=== PATIENT | male | born 1990 | race Caucasian/White ===

== ENCOUNTER 2019-03-30 23:42 | Emergency (ER) | payer SELFPAY ==
--- NOTE | 2019-03-31 01:11 | ER ---
Nurse's Notes [facility] Name: Pro Garcai Age: 28 yrs Sex: Male : 1990 Arrival Date: 03/30/2019 Time: 23:44 Bed 15 Private MD: Diagnosis: Schizophrenia Presentation: 03/30 23:52 Presenting complaint: Patient states: I feel like someone is following me and I am ed1 scared all the time. I called a mental health facility and they told me to come here to get an evaluation. Transition of care: patient was not received from another setting of care. Onset of symptoms was March 30, 2019. Risk Assessment: Do you want to hurt yourself or someone else? Patient reports no desire to harm self or others. Initial Sepsis Screen: Does the patient meet any 2 criteria? No. Patient's initial sepsis screen is negative. Does the patient have a suspected source of infection? No. Patient's initial sepsis screen is negative. Care prior to arrival: None. 23:52 Method Of Arrival: Ambulatory ed1 23:52 Acuity: SARWAT 2 ed1 Triage Assessment: 23:54 General: Appears in no apparent distress. Behavior is calm, cooperative. Pain: Denies ed1 pain. Historical: - Allergies: 23:54 No Known Allergies; ed1 - Home Meds: 23:54 None [Active]; ed1 - PMHx: 23:54 Anxiety; Schizophrenia; ed1 - PSHx: 23:54 Hernia repair; ed1 - Immunization history:: Adult Immunizations up to date. - Social history:: Smoking status: Patient uses tobacco products, smokes one pack cigarettes per day. Patient uses street drugs, marijuana, Methamphetamine (Meth). - Ebola Screening: : Patient negative for fever greater than or equal to 101.5 degrees Fahrenheit, and additional compatible Ebola Virus Disease symptoms Patient denies exposure to infectious person Patient denies travel to an Ebola-affected area in the 21 days before illness onset No symptoms or risks identified at this time. Screenin/10 00:08 Abuse screen: Denies threats or abuse. Denies injuries from another. Nutritional ak1 screening: No deficits noted. Tuberculosis screening: No symptoms or risk factors identified. Fall Risk None identified. Assessment: 00:08 General: pt living in a house in [place] with the person at the bedside. pt stated he ak1 feels safe at his home. pt denies selfharm, suicidal ideations or homicidal ideations. pt stated he "feels like someone is following me" there is "a friendly presents that follows him like a guardian freddy. pt admits to "smoking weed" today. pt denies any other drug use today. . 00:18 Reassessment: pt denies hearing voices or "seeing anyone". ak1 00:56 Reassessment: provider at bedside now. ak1 Vital Signs: 05 23:54 BP 151 / 94; Pulse 81; Resp 18; Temp 99.2(TE); Pulse Ox 100% on R/A; Weight 79.83 kg; ed1 Height 6 ft. 3 in. (190.50 cm); Pain 0/10; 23:54 Body Mass Index 22.00 (79.83 kg, 190.50 cm) ed1 ED Course: 23:44 Patient arrived in ED. es 23:54 Triage completed. ed1 23:54 Arm band placed on right wrist. ed1 05 00:08 Celeste Ballesteros, RN is Primary Nurse. ak1 00:08 Patient has correct armband on for positive identification. Bed in low position. Call ak1 light in reach. Side rails up X 1. Adult w/ patient. 00:11 Clemente David PA is PHCP. jr8 00:11 Khoa Troy MD is Attending Physician. jr8 01:36 No provider procedures requiring assistance completed. Patient did not have IV access ak1 during this emergency room visit. Administered Medications: 01:36 Drug: SEROquel 25 mg Route: PO; ak1 01:36 Follow up: Response: Medication administered at discharge. ak1 Outcome: 01:10 Discharge ordered by . jr8 01:37 Discharged to home ambulatory, with family. ak1 01:37 Condition: good 01:37 Discharge instructions given to patient, family, Instructed on discharge instructions, follow up and referral plans. no drinking with medication, no driving heavy equipment, medication usage, Demonstrated understanding of instructions, follow-up care, medications, Prescriptions given X 1. 01:37 Patient left the ED. ak1 Signatures: Clair Gallagher Erika, RN RN ed1 Roszak, Clemente, PA PA jr8 Krenek, Celeste, RN RN ak1
--- NOTE | 2019-03-31 01:11 | EDPHYS ---
Physician Documentation [facility] Name: Pro Garcia Age: 28 yrs Sex: Male : 1990 Arrival Date: 03/30/2019 Time: 23:44 Bed 15 Private MD: CASH Physician Khoa Troy HPI: 03/31 01:17 This 28 yrs old Male presents to ER via Ambulatory with complaints of EVAL jr8 FOR MENTAL HEALTH. 01:17 The patient presents to the emergency department with paranoia. Onset: The jr8 symptoms/episode began/occurred gradually. Past psychiatric history: Prior diagnosis: schizophrenia. Associated signs and symptoms: The patient has no apparent associated signs or symptoms. Severity of symptoms: At their worst the symptoms were mild in the emergency department the symptoms are unchanged. The patient has experienced similar episodes in the past, chronically. The patient has not recently seen a physician. Patient with history of schizophrenia. Stated that he has been seeing a female that follows him for a long time. Stated that she is nice and sometime mean. Denies SI/HI. Stated that she scares him at times and wants it to stop. Wanted to come for evaluation . Historical: - Allergies: 03/30 23:54 No Known Allergies; ed1 - Home Meds: 23:54 None [Active]; ed1 - PMHx: 23:54 Anxiety; Schizophrenia; ed1 - PSHx: 23:54 Hernia repair; ed1 - Immunization history:: Adult Immunizations up to date. - Social history:: Smoking status: Patient uses tobacco products, smokes one pack cigarettes per day. Patient uses street drugs, marijuana, Methamphetamine (Meth). - Ebola Screening: : Patient negative for fever greater than or equal to 101.5 degrees Fahrenheit, and additional compatible Ebola Virus Disease symptoms Patient denies exposure to infectious person Patient denies travel to an Ebola-affected area in the 21 days before illness onset No symptoms or risks identified at this time. ROS: 03/31 01:17 Eyes: Negative for injury, pain, redness, and discharge, ENT: Negative for injury, jr8 pain, and discharge, Neck: Negative for injury, pain, and swelling, Cardiovascular: Negative for chest pain, palpitations, and edema, Respiratory: Negative for shortness of breath, cough, wheezing, and pleuritic chest pain, Abdomen/GI: Negative for abdominal pain, nausea, vomiting, diarrhea, and constipation, Back: Negative for injury and pain, MS/Extremity: Negative for injury and deformity, Skin: Negative for injury, rash, and discoloration, Neuro: Negative for headache, weakness, numbness, tingling, and seizure. Psych: Positive for auditory hallucinations, visual hallucinations, Negative for suicide gesture, suicidal ideation. Exam: 01:17 Eyes: Pupils equal round and reactive to light, extra-ocular motions intact. Lids and jr8 lashes normal. Conjunctiva and sclera are non-icteric and not injected. Cornea within normal limits. Periorbital areas with no swelling, redness, or edema. ENT: Nares patent. No nasal discharge, no septal abnormalities noted. Tympanic membranes are normal and external auditory canals are clear. Oropharynx with no redness, swelling, or masses, exudates, or evidence of obstruction, uvula midline. Mucous membranes moist. Neck: Trachea midline, no thyromegaly or masses palpated, and no cervical lymphadenopathy. Supple, full range of motion without nuchal rigidity, or vertebral point tenderness. No Meningismus. Cardiovascular: Regular rate and rhythm with a normal S1 and S2. No gallops, murmurs, or rubs. Normal PMI, no JVD. No pulse deficits. Respiratory: Lungs have equal breath sounds bilaterally, clear to auscultation and percussion. No rales, rhonchi or wheezes noted. No increased work of breathing, no retractions or nasal flaring. Abdomen/GI: Soft, non-tender, with normal bowel sounds. No distension or tympany. No guarding or rebound. No evidence of tenderness throughout. Back: No spinal tenderness. No costovertebral tenderness. Full range of motion. Skin: Warm, dry with normal turgor. Normal color with no rashes, no lesions, and no evidence of cellulitis. MS/ Extremity: Pulses equal, no cyanosis. Neurovascular intact. Full, normal range of motion. Neuro: Awake and alert, GCS 15, oriented to person, place, time, and situation. Cranial nerves II-XII grossly intact. Motor strength 5/5 in all extremities. Sensory grossly intact. Cerebellar exam normal. Normal gait. 01:17 Psych: Behavior/mood is cooperative, Affect is calm, Oriented to person, place, time, Patient has no thoughts/intents to harm self or others. Judgement / Insight is normal. Memory is normal. Delusions/hallucinations are present and described as Female person and voice present. Tells him that she can hurt him. . Vital Signs: 03/30 23:54 BP 151 / 94; Pulse 81; Resp 18; Temp 99.2(TE); Pulse Ox 100% on R/A; Weight 79.83 kg; ed1 Height 6 ft. 3 in. (190.50 cm); Pain 0/10; 23:54 Body Mass Index 22.00 (79.83 kg, 190.50 cm) ed1 MDM: 03/31 00:11 Patient medically screened. [facility] 01:09 Data reviewed: vital signs, nurses notes, and as a result, I will discharge patient. jr8 Data interpreted: Pulse oximetry: on room air is 100 %. Interpretation: normal. Counseling: I had a detailed discussion with the patient and/or guardian regarding: the historical points, exam findings, and any diagnostic results supporting the discharge/admit diagnosis, the need for outpatient follow up, a psychiatrist, to return to the emergency department if symptoms worsen or persist or if there are any questions or concerns that arise at home. Administered Medications: 01:36 Drug: SEROquel 25 mg Route: PO; ak1 01:36 Follow up: Response: Medication administered at discharge. ak1 Disposition: 15:00 Co-signature as Attending Physician, Khoa Troy MD I agree with the assessment and [facility] plan of care. Disposition: 03/31/19 01:10 Discharged to Home. Impression: Schizophrenia. - Condition is Stable. - Discharge Instructions: Schizophrenia. - Prescriptions for Seroquel XR 300 mg Oral tablet extended release 24 hr - take 1 tablet by ORAL route once daily at bedtime; 20 tablet. - Medication Reconciliation Form, Thank You Letter, Antibiotic Education, Prescription Opioid Use form. - Follow up: Private Physician; When: Tomorrow; Reason: Recheck today's complaints, Continuance of care, Re-evaluation by your physician. - Problem is new. - Symptoms have improved. Signatures: Khoa Troy MD MD cha Riggs, Erika RN RN ed1 Clemente David PA PA jr8 Celeste Ballesteros RN RN ak1 Corrections: (The following items were deleted from the chart) 01:37 01:10 03/31/2019 01:10 Discharged to Home. Impression: Schizophrenia. Condition is ak1 Stable. Forms are Medication Reconciliation Form, Thank You Letter, Antibiotic Education, Prescription Opioid Use. Follow up: Private Physician; When: Tomorrow; Reason: Recheck today's complaints, Continuance of care, Re-evaluation by your physician. Problem is new. Symptoms have improved. jr8
[2019-03-31] MEDS ORDERED: QUETIAPINE 25 MG TAB ONE (01:41)
== END 2019-03-31 01:37 | disposition home or self-care (01) ==
LOC: ER 23:42
DX: F20.9 Schizophrenia, unspecified (principal); F17.210 Nicotine dependence, cigarettes, uncomplicated
CPT/HCPCS: 99283

== ENCOUNTER 2019-04-18 20:45 | Emergency (ER) | payer SELFPAY ==
--- NOTE | 2019-04-18 20:56 | ER ---
Nurse's Notes [facility] Name: Pro Garcia Age: 28 yrs Sex: Male : 1990 Arrival Date: 04/18/2019 Time: 20:48 Bed 12 Private MD: Diagnosis: Encounter for issue of repeat prescription Presentation: 04/18 20:52 Presenting complaint: Patient states: I am here because I am 3 days away from being out ed1 of my medication. I don't want the voices to come back. My anxiety is getting a little bit better. Transition of care: patient was not received from another setting of care. Onset of symptoms was April 18, 2019. Risk Assessment: Do you want to hurt yourself or someone else? Patient reports no desire to harm self or others. Initial Sepsis Screen: Does the patient meet any 2 criteria? No. Patient's initial sepsis screen is negative. Does the patient have a suspected source of infection? No. Patient's initial sepsis screen is negative. Care prior to arrival: None. 20:52 Method Of Arrival: Ambulatory ed1 20:52 Acuity: SARWAT 5 ed1 Triage Assessment: 20:55 General: Appears in no apparent distress. Behavior is calm, cooperative. Pain: Denies ed1 pain. Historical: - Allergies: 20:55 No Known Allergies; ed1 - Home Meds: 20:55 Seroquel 300 mg Oral tab 1 tab once daily [Active]; ed1 - PMHx: 20:55 Anxiety; Schizophrenia; ed1 - PSHx: 20:55 Hernia repair; ed1 - Immunization history:: Adult Immunizations up to date. - Social history:: Smoking status: Patient/guardian denies using tobacco. - Ebola Screening: : Patient negative for fever greater than or equal to 101.5 degrees Fahrenheit, and additional compatible Ebola Virus Disease symptoms Patient denies exposure to infectious person Patient denies travel to an Ebola-affected area in the 21 days before illness onset No symptoms or risks identified at this time. Screenin:04 Abuse screen: Denies threats or abuse. Denies injuries from another. Nutritional ed1 screening: No deficits noted. Tuberculosis screening: No symptoms or risk factors identified. Fall Risk None identified. Assessment: 21:04 General: Appears in no apparent distress. Behavior is calm, cooperative. Pain: Denies ed1 pain. Neuro: Level of Consciousness is awake, alert, obeys commands, Oriented to person, place, time, situation. Cardiovascular: Denies chest pain. Respiratory: Airway is patent Respiratory effort is even, unlabored, Respiratory pattern is regular, symmetrical, Breath sounds are clear bilaterally. GI: No signs and/or symptoms were reported involving the gastrointestinal system. : No signs and/or symptoms were reported regarding the genitourinary system. EENT: No signs and/or symptoms were reported regarding the EENT system. Derm: Skin is intact, is healthy with good turgor, Skin is dry, Skin is normal, Skin temperature is warm. Musculoskeletal: Circulation, motion, and sensation intact. Range of motion: intact in all extremities. Vital Signs: 20:55 BP 150 / 95; Pulse 96; Resp 18; Temp 98.2(O); Pulse Ox 99% on R/A; Weight 79.83 kg; ed1 Height 6 ft. 3 in. (190.50 cm); Pain 0/10; 20:55 Body Mass Index 22.00 (79.83 kg, 190.50 cm) ed1 ED Course: 20:48 Patient arrived in ED. es 20:54 Triage completed. ed1 20:55 Tana Alvarado FNP-C is [facility]. kb 20:55 Riccardo Adams MD is Attending Physician. kb 20:55 Arm band placed on. ed1 21:04 Patient has correct armband on for positive identification. ed1 21:04 No provider procedures requiring assistance completed. Patient did not have IV access ed1 during this emergency room visit. Administered Medications: No medications were administered Outcome: 20:56 Discharge ordered by . kb 21:04 Discharged to home ambulatory. ed1 21:04 Condition: good 21:04 Discharge instructions given to patient, Instructed on discharge instructions, follow up and referral plans. medication usage, Demonstrated understanding of instructions, follow-up care, medications, Prescriptions given X 1. 21:05 Patient left the ED. ed1 Signatures: Tana Alvarado FNP-C FNP-Clair Barney Erika, RN RN ed1
--- NOTE | 2019-04-18 20:57 | EDPHYS ---
Physician Documentation [facility] Name: Pro Garcia Age: 28 yrs Sex: Male : 1990 Arrival Date: 04/18/2019 Time: 20:48 Bed 12 Private MD: ED Physician Riccardo Adams HPI: 04/18 21:00 This 28 yrs old Male presents to ER via Ambulatory with complaints of kb Medication Refill. 21:00 The patient presents to the emergency department requesting refill(s) for: Seroquel. kb The patient chronically suffers from anxiety and schizophrenia. The patient has experienced similar episodes in the past. The patient has not recently seen a physician. Pt reports he is almost out of seroquel and is worried the voices will come back if he runs out. States he went to [facility], but they couldn't see him because he didn't have ID. States he is working on getting that and will follow up, just needs to have his meds in the meantime. Denies suicidal or homicidal ideations. Historical: - Allergies: 20:55 No Known Allergies; ed1 - Home Meds: 20:55 Seroquel 300 mg Oral tab 1 tab once daily [Active]; ed1 - PMHx: 20:55 Anxiety; Schizophrenia; ed1 - PSHx: 20:55 Hernia repair; ed1 - Immunization history:: Adult Immunizations up to date. - Social history:: Smoking status: Patient/guardian denies using tobacco. - Ebola Screening: : Patient negative for fever greater than or equal to 101.5 degrees Fahrenheit, and additional compatible Ebola Virus Disease symptoms Patient denies exposure to infectious person Patient denies travel to an Ebola-affected area in the 21 days before illness onset No symptoms or risks identified at this time. ROS: 20:59 Constitutional: Negative for fever, chills, and weight loss, Cardiovascular: Negative kb for chest pain, palpitations, and edema, Respiratory: Negative for shortness of breath, cough, wheezing, and pleuritic chest pain, Abdomen/GI: Negative for abdominal pain, nausea, vomiting, diarrhea, and constipation, : Negative for injury, bleeding, discharge, and swelling, MS/Extremity: Negative for injury and deformity, Skin: Negative for injury, rash, and discoloration, Neuro: Negative for headache, weakness, numbness, tingling, and seizure. Exam: 20:59 Constitutional: This is a well developed, well nourished patient who is awake, alert, kb and in no acute distress. Head/Face: Normocephalic, atraumatic. ENT: Nares patent. No nasal discharge, no septal abnormalities noted. Tympanic membranes are normal and external auditory canals are clear. Oropharynx with no redness, swelling, or masses, exudates, or evidence of obstruction, uvula midline. Mucous membranes moist. Neck: Trachea midline, no thyromegaly or masses palpated, and no cervical lymphadenopathy. Supple, full range of motion without nuchal rigidity, or vertebral point tenderness. No Meningismus. Chest/axilla: Normal chest wall appearance and motion. Nontender with no deformity. No lesions are appreciated. Cardiovascular: Regular rate and rhythm with a normal S1 and S2. No gallops, murmurs, or rubs. Normal PMI, no JVD. No pulse deficits. Respiratory: Lungs have equal breath sounds bilaterally, clear to auscultation and percussion. No rales, rhonchi or wheezes noted. No increased work of breathing, no retractions or nasal flaring. Abdomen/GI: Soft, non-tender, with normal bowel sounds. No distension or tympany. No guarding or rebound. No evidence of tenderness throughout. Skin: Warm, dry with normal turgor. Normal color with no rashes, no lesions, and no evidence of cellulitis. MS/ Extremity: Pulses equal, no cyanosis. Neurovascular intact. Full, normal range of motion. Neuro: Awake and alert, GCS 15, oriented to person, place, time, and situation. Cranial nerves II-XII grossly intact. Motor strength 5/5 in all extremities. Sensory grossly intact. Cerebellar exam normal. Normal gait. Vital Signs: 20:55 BP 150 / 95; Pulse 96; Resp 18; Temp 98.2(O); Pulse Ox 99% on R/A; Weight 79.83 kg; ed1 Height 6 ft. 3 in. (190.50 cm); Pain 0/10; 20:55 Body Mass Index 22.00 (79.83 kg, 190.50 cm) ed1 MDM: 20:55 Patient medically screened. kb 20:59 Data reviewed: vital signs, nurses notes. Data interpreted: Pulse oximetry: on room air kb is 99 %. Interpretation: normal. Counseling: I had a detailed discussion with the patient and/or guardian regarding: the historical points, exam findings, and any diagnostic results supporting the discharge/admit diagnosis, the need for outpatient follow up, a family practitioner, to return to the emergency department if symptoms worsen or persist or if there are any questions or concerns that arise at home. Administered Medications: No medications were administered Disposition: 23:57 Co-signature as Attending Physician, Riccardo Adams MD. Disposition: 04/18/19 20:56 Discharged to Home. Impression: Encounter for issue of repeat prescription. - Condition is Stable. - Discharge Instructions: Medicine Refill at the Emergency Department. - Prescriptions for Seroquel XR 300 mg Oral tablet extended release 24 hr - take 1 tablet by ORAL route once daily at bedtime; 20 tablet. - Medication Reconciliation Form, Thank You Letter, Antibiotic Education, Prescription Opioid Use form. - Follow up: Emergency Department; When: As needed; Reason: Worsening of condition. Follow up: Private Physician; When: 2 - 3 days; Reason: Recheck today's complaints, Continuance of care, Re-evaluation by your physician. Signatures: Tana Alvarado FNP-C FNP-Patrizia Al RN RN ed1 Riccardo Adams MD MD Corrections: (The following items were deleted from the chart) 21:05 20:56 04/18/2019 20:56 Discharged to Home. Impression: Encounter for issue of repeat ed1 prescription. Condition is Stable. Forms are Medication Reconciliation Form, Thank You Letter, Antibiotic Education, Prescription Opioid Use. Follow up: Emergency Department; When: As needed; Reason: Worsening of condition. Follow up: Private Physician; When: 2 - 3 days; Reason: Recheck today's complaints, Continuance of care, Re-evaluation by your physician. kb
== END 2019-04-18 21:05 | disposition home or self-care (01) ==
LOC: ER 20:45
DX: Z76.0 Encounter for issue of repeat prescription (principal); F41.9 Anxiety disorder, unspecified; F20.9 Schizophrenia, unspecified
CPT/HCPCS: 99282

== ENCOUNTER 2019-07-28 14:57 | Emergency (ER) | payer SELFPAY ==
[2019-07-28 15:53] LABS: Urine Blood NEGATIVE (NEG); Urine Glucose NEGATIVE (NEG); Urine Protein NEGATIVE (NEG); Urine Specific Gravity 1.025 (1.005-1.030)
[2019-07-28 16:07] LABS: Barbiturates NEGATIVE (NEGATIVE); Benzodiazepines NEGATIVE (NEGATIVE); Cocaine NEGATIVE (NEGATIVE); METHAMPHETAM POSITIVE (NEGATIVE); Methadone NEGATIVE (NEGATIVE); Opiates NEGATIVE (NEGATIVE); Phencyclidine NEGATIVE (NEGATIVE); THC Cannibis POSITIVE (NEGATIVE)
[2019-07-28 16:07] LABS: Protime INR 0.95
[2019-07-28 16:17] LABS: Absolute Lymphocytes (CBC) 1.6 K/uL (0.7-4.9); Hematocrit 45.3 % (39.6-49.0); Lymphocytes % 20.2 % (15.3-44.8); MPV 9.9 fL (7.6-11.3); RBC Red Blood Cell Count 5.01 M/uL (4.33-5.43)
[2019-07-28 16:28] LABS: ALT/SGPT 19 U/L (12-78); AST/SGOT 10 U/L (15-37); Albumin 3.8 g/dL (3.4-5.0); Alkaline Phosphatase 59 U/L (45-117); BUN Blood Urea Nitrogen 14 mg/dL (7-18); Bicarbonate 26 mmol/L (21-32); Bilirubin Direct 0.1 mg/dL (0-0.2); Bilirubin Total 0.4 mg/dL (0.2-1.0); Glucose Level 82 mg/dL (74-106); Potassium 4.5 mmol/L (3.5-5.1); Protein, Total 6.6 g/dL (6.4-8.2); Sodium Level 143 mmol/L (136-145)
[2019-07-28] MEDS ORDERED: NA CHLORIDE 0.9% 1,000 ML ONE (17:46)
[2019-07-28] MEDS ORDERED: QUETIAPINE 25 MG TAB PO ONE (19:00)
--- NOTE | 2019-07-28 19:48 | ER ---
Nurse's Notes [facility] Name: Pro Garcia Age: 28 yrs Sex: Male : 1990 Arrival Date: 07/28/2019 Time: 14:58 Bed 15 Private MD: Diagnosis: Suicidal ideations Presentation: 07/28 15:01 Presenting complaint: Patient states: "I came in here a couple months ago because I was aj1 having mental health problems and I thought a women was following me around, its gotten worse and now I hear everyone talking to me in my head and it makes me want to kill myself so the medication they gave me isn't working" Patient reports that he has a plan to kill himself by buying a gun and shooting himself. Transition of care: patient was not received from another setting of care. Onset of symptoms was July 28, 2019. Risk Assessment: Do you want to hurt yourself or someone else? Patient reports desire/thoughts of hurting themselves or someone else. Provider notified. Initial Sepsis Screen: Does the patient meet any 2 criteria? No. Patient's initial sepsis screen is negative. Does the patient have a suspected source of infection? No. Patient's initial sepsis screen is negative. Care prior to arrival: None. 15:01 Method Of Arrival: Ambulatory [facility] 15:01 Acuity: SARWAT 2 aj1 Triage Assessment: 15:03 General: Appears uncomfortable, Behavior is cooperative, anxious. Pain: Denies pain. aj1 Neuro: Level of Consciousness is awake, alert, obeys commands. Cardiovascular: Patient's skin is warm and dry. Respiratory: Airway is patent Respiratory effort is even, unlabored, Respiratory pattern is regular, symmetrical. Historical: - Allergies: 15:03 No Known Allergies; aj1 - Home Meds: 15:03 None [Active]; aj1 - PMHx: 15:03 Anxiety; Schizophrenia; aj1 - Immunization history:: Flu vaccine is not up to date. - Social history:: Smoking status: Patient uses tobacco products, smokes one pack cigarettes per day. - Ebola Screening: : Patient denies travel to an Ebola-affected area in the 21 days before illness onset. Screenin:11 Abuse screen: Denies threats or abuse. Denies injuries from another. Nutritional ph screening: No deficits noted. Tuberculosis screening: No symptoms or risk factors identified. Fall Risk None identified. Assessment: 15:30 General: Appears in no apparent distress. comfortable, slender, Behavior is ph cooperative, appropriate for age, anxious. Pain: Denies pain. Neuro: Level of Consciousness is awake, alert, obeys commands, Oriented to person, place, time, situation. Cardiovascular: Capillary refill < 3 seconds in bilateral fingers Patient's skin is warm and dry. Respiratory: Airway is patent Respiratory effort is even, unlabored. GI: No signs and/or symptoms were reported involving the gastrointestinal system. Derm: Skin is intact, Skin is pink, warm \\T\\ dry. Musculoskeletal: Circulation, motion, and sensation intact. Range of motion: intact in all extremities. 16:54 Reassessment: Patient appears in no apparent distress at this time. No changes from tw2 previously documented assessment. Patient and/or family updated on plan of care and expected duration. Pain level reassessed. Patient is alert, oriented x 3, equal unlabored respirations, skin warm/dry/pink. pt appears to be sleeping at this time. 18:10 Reassessment: Patient appears in no apparent distress at this time. Patient and/or ph family updated on plan of care and expected duration. Pain level reassessed. Patient is alert, oriented x 3, equal unlabored respirations, skin warm/dry/pink. [facility] at bedside to assess pt. 19:00 General: Appears in no apparent distress. comfortable, Behavior is calm, cooperative, jd3 appropriate for age. Pain: Denies pain. Neuro: Level of Consciousness is awake, alert, obeys commands, Oriented to person, place, time, situation, Reports auditory hallucinations. Cardiovascular: Capillary refill < 3 seconds Patient's skin is warm and dry. Respiratory: Airway is patent Respiratory effort is even, unlabored, Respiratory pattern is regular, symmetrical. GI: No signs and/or symptoms were reported involving the gastrointestinal system. : No signs and/or symptoms were reported regarding the genitourinary system. EENT: No signs and/or symptoms were reported regarding the EENT system. Derm: Skin is intact, Skin is dry, Skin is normal, Skin temperature is warm. Musculoskeletal: Circulation, motion, and sensation intact. Range of motion: intact in all extremities. 20:00 Reassessment: Patient appears in no apparent distress at this time. Patient and/or jd3 family updated on plan of care and expected duration. Pain level reassessed. Patient is alert, oriented x 3, equal unlabored respirations, skin warm/dry/pink. pt resting in bed with eyes closed, even and unlabored respirations. no distress noted at this time. sitter at bedside. attempted to call report to [facility], was told to call back later. Patient denies pain at this time. 20:27 Reassessment: report given to Alisia Ramos RN at [facility]. [facility] 21:00 Reassessment: Patient appears in no apparent distress at this time. Patient and/or jd3 family updated on plan of care and expected duration. Pain level reassessed. Patient is alert, oriented x 3, equal unlabored respirations, skin warm/dry/pink. awaiting EMS for transportation. Patient denies pain at this time. 21:25 Reassessment: Patient appears in no apparent distress at this time. Patient and/or jd3 family updated on plan of care and expected duration. Pain level reassessed. Patient is alert, oriented x 3, equal unlabored respirations, skin warm/dry/pink. report given to EMS. Patient denies pain at this time. Psych: 15:05 Subjective: Patient's mood is sad, Delusions are States he feels that Jamila Lin is aj1 telling him to kill himself Hallucinations are auditory, Having thoughts of suicide. Objective: Patient is cooperative, Speech is normal, Affect is blunted. Suicide Risk Assessment: Sad Person Scale: Sex of patient: Male: Score 1 point. Age of patient: Score 1 point if patient 15-34. Depression: Score 1 point if signs of depression are present. Previous Attempt: Score 0 point if patient has not previously attempted suicide. Substance Abuse: Score 1 point if patient abuses alcohol or drugs. Rational Thinking: Score 1 point if patient is lacking rational thinking. Social Support: Score 1 point if social support is lacking and/or unavailable. Organized Plan: Score 1 point if patient had a plan in place. Relationship: Score 1 point if patient is , , , or for a single male Chronic Sickness: Score 0 point if patient does not have a chronic illness, debilitating, or severe disorder. TOTAL POINTS: If total points are 7-10, the proposed clinical action is to hospitalize or commit. Implement suicide precautions. Patient uses marijuana Patient uses methamphetamines. Commitment: Patient will be a voluntary commitment. 15:15 Interventions: Removed personal items and placed in bag. Patient placed in hospital ph gown. Searched person for dangerous items. Urine collected and sent for urine drug test. Belonging list filled out. Safety Checks: Personal items have been removed. clothing, cigarettes, customer support consultant and 22 dollars in [place] Door is open. Vital Signs: 15:03 BP 137 / 79; Pulse 100; Resp 18; Temp 98.0; Pulse Ox 100% on R/A; Weight 79.83 kg (R); aj1 Height 6 ft. 2 in. (187.96 cm) (R); Pain 0/10; 19:14 BP 112 / 71; Pulse 85; Resp 18; Temp 98.4; Pulse Ox 98% on R/A; Pain 0/10; aa8 15:03 Body Mass Index 22.60 (79.83 kg, 187.96 cm) aj1 ED Course: 14:58 Patient arrived in ED. as 15:00 Safety checks: Items removed: yes. Door open/sign placed on door: yes. Family/friend mh5 present: no. Sitter present: Yes. 15:03 Triage completed. aj1 15:03 Arm band placed on Patient placed in an exam room. aj1 15:08 Placed in gown. Bed in low position. Side rails up X 1. sitter present at bedside. tw2 15:10 Helen Phillip, RN is Primary Nurse. 15:15 Safety checks: Items removed: yes. Door open/sign placed on door: yes. Family/friend mh5 present: no. Sitter present: Yes. 15:27 Khoa Ernst PA is PHCP. cp 15:27 Khoa Troy MD is Attending Physician. cp 15:30 Safety checks: Items removed: yes. Door open/sign placed on door: yes. Family/friend mh5 present: no. Sitter present: Yes. 15:42 Initial lab(s) drawn, by me, sent to lab. Inserted saline lock: 22 gauge in left mh5 antecubital area, using aseptic technique. Blood collected. 15:42 Acetaminophen Sent. 5 15:42 Basic Metabolic Panel Sent. 5 15:42 CBC with Diff Sent. 5 15:42 ETOH Level Sent. mh5 15:42 Salicylate Sent. mh5 15:43 Urine Drug Screen Sent. mh5 15:43 Ptt, Activated Sent. mh5 15:43 PT-INR Sent. mh5 15:43 Hepatic Function Sent. mh5 15:43 Urine Dipstick--Ancillary (enter results) Sent. mh5 15:45 Safety checks: Items removed: yes. Door open/sign placed on door: yes. Family/friend mh5 present: no. Sitter present: Yes. 16:00 Safety checks: Items removed: yes. Door open/sign placed on door: yes. Family/friend mh5 present: no. Sitter present: Yes. Warm blanket given. 16:07 EKG done, by bicycle repair technician. reviewed by Khoa JO. [facility] 16:15 Safety checks: Items removed: Door open/sign placed on door: yes. Family/friend mh5 present: no. Sitter present: Yes. 16:30 Safety checks: Items removed: yes. Door open/sign placed on door: yes. Family/friend mh5 present: no. Sitter present: Yes. 16:45 Safety checks: Items removed: yes. Door open/sign placed on door: yes. Family/friend mh5 present: no. Sitter present: Yes. Lights dimmed. 17:00 Safety checks: Items removed: yes. Door open/sign placed on door: yes. Family/friend mh5 present: no. Sitter present: Yes. 17:12 Diet: Patient given a regular meal tray. 5 17:15 Safety checks: Items removed: yes. Door open/sign placed on door: yes. Family/friend mh5 present: no. Sitter present: Yes. 17:29 faxed chart to [facility], [facility], [facility] and [facility]. 17:30 Safety checks: Items removed: yes. Door open/sign placed on door: yes. Family/friend mh5 present: no. Sitter present: Yes. 17:31 contacted [facility], talked to Gage, faxed the chart and exclusionary with bd consent for voluntary admission to psychiatric service. 17:45 Safety checks: Items removed: yes. Door open/sign placed on door: yes. Family/friend mh5 present: no. Sitter present: Yes. 17:48 Safety checks: Family/friend present: Other: [facility] IN WITH PATIENT . mh5 18:00 Safety checks: Items removed: yes. Door open/sign placed on door: yes. Family/friend mh5 present: Other: [facility] IN WITH PATIENT . Sitter present: Yes. 18:15 Safety checks: Items removed: yes. Door open/sign placed on door: yes. Family/friend mh5 present: no. Other: [facility] IN WITH PATIENT . 18:30 Safety checks: Items removed: yes. Door open/sign placed on door: yes. Family/friend mh5 present: no. Sitter present: Yes. 18:45 Safety checks: Items removed: yes. Door open/sign placed on door: yes. Family/friend mh5 present: no. Sitter present: Yes. 19:00 Safety checks: Items removed: yes. Door open/sign placed on door: yes. Family/friend aa8 present: no. Sitter present: Yes. 19:15 Safety checks: Items removed: yes. Door open/sign placed on door: yes. Family/friend aa8 present: no. Sitter present: Yes. 19:30 Safety checks: Items removed: yes. Door open/sign placed on door: yes. Family/friend aa8 present: no. Sitter present: Yes. 19:45 Safety checks: Items removed: yes. Door open/sign placed on door: yes. Family/friend aa8 present: no. Sitter present: Yes. 20:00 Safety checks: Items removed: yes. Door open/sign placed on door: yes. Family/friend aa8 present: no. Sitter present: Yes. 20:15 Safety checks: Items removed: yes. Door open/sign placed on door: yes. Family/friend aa8 present: no. Sitter present: Yes. 20:30 Safety checks: Items removed: yes. Door open/sign placed on door: yes. Family/friend aa8 present: no. Sitter present: Yes. 21:27 No provider procedures requiring assistance completed. IV discontinued, intact, jd3 bleeding controlled, No redness/swelling at site. Pressure dressing applied. Administered Medications: 16:00 Drug: NS 0.9% 1000 ml Route: IV; Rate: 1 bolus; Site: left antecubital; ph 18:27 Follow up: Response: No adverse reaction; IV Status: Completed infusion ph 18:36 Drug: SEROquel 25 mg Route: PO; ph 18:36 Follow up: Response: No adverse reaction ph Outcome: 19:47 ER care complete, transfer ordered by . cp 21:28 Transferred by ground EMS to [facility], Transfer form completed. jd3 21:28 Condition: stable 21:28 Instructed on the need for transfer, Demonstrated understanding of instructions. 21:28 Patient left the ED. jd3 Signatures: Aditi Prater Angela, RN RN aj1 Martha Powell Patricia, RN RN ph Khoa Ernst PA PA cp Wise, Tara, RN RN tw2 Diana Powell 5 Mary Alice Wheat 8 Deep Lagunas RN RN jd3 Iris Hazel 3 Corrections: (The following items were deleted from the chart) 20:08 20:00 Reassessment: Patient appears in no apparent distress at this time. Patient jd3 and/or family updated on plan of care and expected duration. Pain level reassessed. Patient is alert, oriented x 3, equal unlabored respirations, skin warm/dry/pink. pt resting in bed with eyes closed, even and unlabored respirations. no distress noted at this time. sitter at bedside. Patient denies pain at this time. jd3
--- NOTE | 2019-07-28 19:48 | EDPHYS ---
Physician Documentation [facility] Name: Pro Garcia Age: 28 yrs Sex: Male : 1990 Arrival Date: 07/28/2019 Time: 14:58 Bed 15 Private MD: ED Physician Khoa Troy HPI: 07/28 15:45 This 28 yrs old Male presents to ER via Ambulatory with complaints of cp Suicidal Ideation. 15:45 The patient presents to the emergency department with paranoia, suicide ideation, and cp the patient has a plan, to shoot self. 15:45 Onset: The symptoms/episode began/occurred gradually. cp 15:45 Past psychiatric history: Prior diagnosis: schizophrenia, Psychiatric medications cp include: none, the patient does not have a previous inpatient psychiatric history. Associated signs and symptoms: Pertinent positives; hallucinations, substance abuse, Pertinent negatives: abdominal pain, chest pain, headache, homicidal ideation, tremor, vomiting. Severity of symptoms: in the emergency department the symptoms are unchanged. Historical: - Allergies: 15:03 No Known Allergies; aj1 - Home Meds: 15:03 None [Active]; aj1 - PMHx: 15:03 Anxiety; Schizophrenia; aj1 - Immunization history:: Flu vaccine is not up to date. - Social history:: Smoking status: Patient uses tobacco products, smokes one pack cigarettes per day. - Ebola Screening: : Patient denies travel to an Ebola-affected area in the 21 days before illness onset. ROS: 15:50 Constitutional: Negative for body aches, chills, fever, poor PO intake. cp 15:50 Eyes: Negative for injury, pain, redness, and discharge. cp 15:50 ENT: Negative for drainage from ear(s), ear pain, sore throat, difficulty swallowing, difficulty handling secretions. 15:50 Cardiovascular: Negative for chest pain, palpitations. 15:50 Respiratory: Negative for cough, shortness of breath, wheezing. 15:50 Abdomen/GI: Negative for abdominal pain, nausea, vomiting, and diarrhea. 15:50 Neuro: Negative for altered mental status, dizziness, headache, numbness, weakness. 15:50 Psych: Positive for suicidal ideation, methamphetamine abuse. 15:50 All other systems are negative. Exam: 16:00 Constitutional: The patient appears in no acute distress, alert, awake, cp non-diaphoretic, non-toxic, well developed, well nourished. 16:00 Head/Face: Normocephalic, atraumatic. cp 16:00 Eyes: Periorbital structures: appear normal, Pupils: equal, round, and reactive to light and accomodation, Extraocular movements: intact throughout, Conjunctiva: normal, no exudate, no injection, Sclera: no appreciated abnormality, Lids and lashes: appear normal, bilaterally. 16:00 ENT: External ear(s): are unremarkable, Nose: is normal, Mouth: is normal, Posterior pharynx: is normal, airway is patent, no erythema, no exudate. 16:00 Neck: ROM/movement: is normal, is supple, without pain, no range of motions limitations, no nuchal rigidity. 16:00 Chest/axilla: Inspection: normal, Palpation: is normal, no crepitus, no tenderness. 16:00 Cardiovascular: Rate: normal, Rhythm: regular. 16:00 Respiratory: the patient does not display signs of respiratory distress, Respirations: normal, no use of accessory muscles, no retractions, no splinting, no tachypnea, labored breathing, is not present, Breath sounds: are clear throughout, no decreased breath sounds, no stridor, no wheezing. 16:00 Abdomen/GI: Inspection: abdomen appears normal, Palpation: abdomen is soft and non-tender, in all quadrants, voluntary guarding, is not appreciated, involuntary guarding, is not appreciated. 16:00 Back: pain, is absent, ROM is normal. 16:00 Skin: no rash present. 16:00 Neuro: Orientation: to person, place \T\ time. Mentation: is normal, Cerebellar function: is grossly normal, Motor: moves all fours, strength is normal, Sensation: is normal. 16:10 ECG was reviewed by the Attending Physician. cp Vital Signs: 15:03 BP 137 / 79; Pulse 100; Resp 18; Temp 98.0; Pulse Ox 100% on R/A; Weight 79.83 kg (R); aj1 Height 6 ft. 2 in. (187.96 cm) (R); Pain 0/10; 19:14 BP 112 / 71; Pulse 85; Resp 18; Temp 98.4; Pulse Ox 98% on R/A; Pain 0; aa8 15:03 Body Mass Index 22.60 (79.83 kg, 187.96 cm) aj1 MDM: 15:29 Patient medically screened. alejandro 16:00 Differential diagnosis: drug withdrawal. acute psychotic break, depression, psychosis cp secondary to non-compliance. 16:50 Data reviewed: vital signs, nurses notes, lab test result(s), EKG. cp 16:50 Test interpretation: by ED physician or midlevel provider: ECG. 19:45 Physician consultation: DR Damon, psychiatry, will accept patient as transfer. cp 07/28 15:36 Order name: Acetaminophen; Complete Time: 16:40 cp 07/28 15:36 Order name: Basic Metabolic Panel; Complete Time: 16:40 cp 07/28 15:36 Order name: CBC with Diff; Complete Time: 16:40 cp 07/28 15:36 Order name: ETOH Level; Complete Time: 16:40 cp 07/28 15:36 Order name: Hepatic Function; Complete Time: 16:40 cp 07/28 15:36 Order name: PT-INR; Complete Time: 16:40 cp 07/28 15:36 Order name: Ptt, Activated; Complete Time: 16:40 cp 07/28 15:36 Order name: Salicylate; Complete Time: 16:40 cp 07/28 15:36 Order name: Urine Drug Screen; Complete Time: 16:40 cp 07/28 16:40 Interpretation: Normal except: METHAMPHETAMINE POSITIVE; THC POSITIVE. cp 07/28 15:36 Order name: EKG; Complete Time: 15:41 cp 07/28 15:42 Order name: Urine Dipstick--Ancillary (enter results); Complete Time: 16:40 bd 07/28 15:46 Order name: Diet Regular; Complete Time: 15:47 mh5 07/28 15:36 Order name: EKG - Nurse/Tech; Complete Time: 18:41 cp 07/28 15:36 Order name: IV Saline Lock; Complete Time: 15:42 cp 07/28 15:36 Order name: Labs collected and sent; Complete Time: 15:42 cp 07/28 15:36 Order name: Urine Dipstick-Ancillary (obtain specimen); Complete Time: 15:42 cp EC:10 Rate is 63 beats/min. Rhythm is regular. PA interval is normal. QRS interval is cp prolonged at 114 msec. QT interval is normal. T waves are Inverted in lead aVL. Interpreted by me. Reviewed by me. Administered Medications: 16:00 Drug: NS 0.9% 1000 ml Route: IV; Rate: 1 bolus; Site: left antecubital; ph 18:27 Follow up: Response: No adverse reaction; IV Status: Completed infusion ph 18:36 Drug: SEROquel 25 mg Route: PO; ph 18:36 Follow up: Response: No adverse reaction ph Disposition: 07/28/19 19:47 Transfer ordered to Psych Facility. Diagnosis is Suicidal ideations. - Reason for transfer: Higher level of care. - Accepting physician is Dr Damon. - Condition is Stable. - Problem is new. - Symptoms have improved. Addendum: 07/30/2019 08:12 Co-signature as Attending Physician, Khoa Troy MD I agree with the assessment and c smiley plan of care. Signatures: Dispatcher [employer] EDRubi Burton RN RN Khoa Rizvi MD MD cha Hall, Patricia RN RN Khoa Ernst PA PA Deep Ace RN RN jd3 Corrections: (The following items were deleted from the chart) 07/28 21:28 19:47 07/28/2019 19:47 Transfer ordered to Psych Facility. Diagnosis is Suicidal jd3 ideations. Reason for transfer: Higher level of care. Accepting physician is Dr Damon. Condition is Stable. Problem is new. Symptoms have improved. cp
--- NOTE | 2019-07-29 07:48 | EKG ---
Test Date: 2019-07-28 Test Time: 16:07:46 Financial Systems Analyst: SIRISHA MEASUREMENT RESULTS: Intervals: Rate: 63 OH: 106 QRSD: 114 QT: 396 QTc: 405 [place]: P: 10 OH: 106 QRS: 81 T: 73 INTERPRETIVE STATEMENTS: Sinus rhythm with short OH Otherwise normal ECG No previous ECG available for comparison Electronically Signed On 07-29-19 07:47:29 CDT by Giles López
== END 2019-07-28 21:28 ==
LOC: ER 14:57
DX: R45.851 Suicidal ideations (principal); F17.210 Nicotine dependence, cigarettes, uncomplicated
CPT/HCPCS: 36415; 80048; 80076; 80307; 80320; 80329; 81003; 85025; 85610; 85730; 93005; 96360; 96361; 99285; J7030